=== PATIENT | female | born 1950 | race Hispanic/Latino ===

== ENCOUNTER 2018-01-18 06:00 | Day surgery (SDC) | payer MEDICARE ==
[2018-01-15 09:30] VITALS: BP 128/71
[2018-01-18] VITALS (13 sets, daily range): BP systolic 116–153; BP diastolic 59–72
[~2018-01-18] VITALS: Ht 147.3 cm; Wt 55.8 kg
[2018-01-18] MEDS: CEFAZOLIN SODIUM 1 GM VIAL IVP SCH ×2 (05:00→07:30)
[~2018-01-18 06:00] MED LIST: ACET-2900 PO; BACL20TA PO; CHOL200013 PO; GABA-529 PO; GLIM4TAB3 PO; GLUC-145 PO; HYDR12.530 PO; LOSA100T29 PO; METF10004 PO; MVIT PO; calcium,mag,zinc PO; vitamin b12
[2018-01-18] MEDS ORDERED: SODIUM CHLORIDE 0.9% 1000ML 1,000 ML IV ONE (06:33)
[2018-01-18] MEDS ORDERED: LIDOCAINE HCL-MPF 0.5% 50ML VIAL IJ ONE ×2 (07:02→07:11)
[2018-01-18] MEDS ORDERED: LIDOCAINE PF 2% 5ML ABBOJECT ONE (07:03)
[2018-01-18] MEDS ORDERED: GLYCOPYRROLATE 0.2 MG/ML 5 ML VIAL ONE (07:03)
[2018-01-18] MEDS ORDERED: DEXAMETHASONE SOD PHOSPHATE 10MG/ML 1ML VIAL ONE (07:03)
[2018-01-18] MEDS ORDERED: PROPOFOL 10 MG/ML 20ML VIAL IV ONE (07:07)
[2018-01-18] MEDS ORDERED: MIDAZOLAM HCL 1 MG/ML 2ML VIAL ONE (07:07)
[2018-01-18] MEDS ORDERED: FENTANYL CITRATE PF 50 MCG/1 ML 2ML VIAL ONE (07:07)
[2018-01-18] MEDS ORDERED: ONDANSETRON HCL MDV 20ML 2 MG/ML VIAL ONE (07:44)
== END 2018-01-18 09:27 | disposition home or self-care (01) ==
LOC: DAH 06:00
PROVIDERS: ATTEND Neurological Surgery
DX: G56.02 Carpal tunnel syndrome, left upper limb (principal); Z79.899 Other long term (current) drug therapy; Z79.84 Long term (current) use of oral hypoglycemic drugs; E11.9 Type 2 diabetes mellitus without complications; I48.91 Unspecified atrial fibrillation; I10 Essential (primary) hypertension; M19.90 Unspecified osteoarthritis, unspecified site; I99.8 Other disorder of circulatory system
CPT/HCPCS: 64721; 82948 ×2; 93005; A4218; J0690; J1100; J2001; J2250; J2704; J3010; J3490 ×3; J7030

== ENCOUNTER → 2020-08-06 | Outpatient (CLI) | payer OTHER ==
[~2020-08-06] MED LIST changes: -ACET-2900 PO; +ACET-3194 PO; -GLIM4TAB3 PO; +GLIM4TAB36 PO; -LOSA100T29 PO; +LOSA100T58 PO; +METF-446 PO; -METF10004 PO
== END | disposition home or self-care (01) ==
LOC: RAH 10:26
PROVIDERS: ATTEND Neurological Surgery
DX: M47.812 Spondylosis without myelopathy or radiculopathy, cervical region (principal); M43.13 Spondylolisthesis, cervicothoracic region; M85.88 Other specified disorders of bone density and structure, other site; M48.02 Spinal stenosis, cervical region; M43.22 Fusion of spine, cervical region
CPT/HCPCS: 72050

== ENCOUNTER 2020-08-12 05:46 | Day surgery (SDC) | payer OTHER ==
[2020-08-06 12:08] LABS: BASOPHILS % (AUTO) 0.6 % (0.0-5.0); LYMPHOCYTES % (AUTO) 29.8 % (21.0-51.0); MEAN CORPUSCULAR HEMOGLOBIN 27.6 pg (27.0-33.0); MEAN CORPUSCULAR HGB CONC 31.5 g/dL (32.0-36.0); MEAN CORPUSCULAR VOLUME 87.9 fL (79-99); MONOCYTES % (AUTO) 7.6 % (3.0-13.0); NEUTROPHILS % (AUTO) 60.8 % (40.0-77.0); PLATELET COUNT (AUTO) 349 K/uL (130-400); RED BLOOD CELL COUNT(AUTO) 3.87 MIL/uL (4.00-5.50); RED CELL DISTRIBUTION WIDTH 13.3 % (11.0-15.5); WHITE BLOOD COUNT (AUTO) 8.7 K/uL (4.8-10.8)
[2020-08-06 12:35] LABS: CREATININE 0.9 mg/dL (0.5-1.5); POTASSIUM 4.3 mmol/L (3.5-5.1)
[2020-08-11] MEDS: CEFAZOLIN SODIUM 1 GM VIAL IVP SCH (06:00)
[2020-08-11 10:46] VITALS: BP 117/60
[2020-08-11 14:25] LABS: APPEARANCE,URINE Clear (CLEAR); BILIRUBIN,URINE Negative (NEGATIVE); COLOR,URINE Yellow (YELLOW); GLUCOSE, URINE (UA) Negative (NEGATIVE); KETONES,URINE Negative (NEGATIVE); LEUKOCYTE ESTERASE ,URINE Small (NEGATIVE); NITRATE,URINE Positive (NEGATIVE); OCCULT BLOOD,URINE Moderate (NEGATIVE); PH,URINE 5.5 (5.0-8.0); PROTEIN,URINE Negative (NEGATIVE); UROBILINOGEN,URINE 0.2 mg/dL (0.2-1.0)
[2020-08-11 14:44] LABS: BACTERIA,URINE Many /HPF (None Seen); RBC,URINE 0-1 /HPF (0-1)
--- NOTE | 2020-08-11 16:28 | NUR ---
UA PT STATES HAS A TEMP OF 101.3. DR. SEAY INFORMED. UA AND PAID COVID ORDERED. PT HAS UTI AND NEGATIVE RAPID RESULT. INFORMED DR. DAWOOD STEWART ASST. PER DR. SEAY, HE WILL PROCEED WITH SURGERY AND CALL IN A PRESCRIPTION FOR HER UTI TO START TODAY. PT INFORMED. VERBALIZED UNDERSTANDING, AND WIAHES TO PROCEED WITH SURGERY TOMORROW.
[2020-08-12] VITALS (11 sets, daily range): BP systolic 107–136; BP diastolic 47–66
[~2020-08-12] VITALS: Ht 147.3 cm; Wt 55.8 kg
[~2020-08-12 05:46] MED LIST changes: +ASPI-1197 PO; +ATOR10TA69 PO; +BIOT5000 PO; -CHOL200013 PO; +GLIM1TAB18 PO; +GLIM2TAB30 PO; -GLIM4TAB36 PO; -GLUC-145 PO; -MVIT PO; +OMEG-148 PO; +[UNRECOGNIZED DRUG - OTHER] PO; -calcium,mag,zinc PO; -vitamin b12
[2020-08-12] MEDS ORDERED: CEFAZOLIN SODIUM 1 GM VIAL ONE (07:12)
[2020-08-12] MEDS ORDERED: SODIUM CHLORIDE 0.9% 1000ML 1,000 ML IV ONE (07:12)
[2020-08-12] MEDS ORDERED: NITR100C4 PO (07:50)
[2020-08-12] MEDS ORDERED: PROPOFOL 10 MG/ML 20ML VIAL IV ONE (10:40)
[2020-08-12] MEDS ORDERED: DEXAMETHASONE SOD PHOSPHATE 10MG/ML 1ML VIAL ONE (10:40)
[2020-08-12] MEDS ORDERED: MIDAZOLAM HCL 1 MG/ML 2ML VIAL ONE (10:40)
[2020-08-12] MEDS ORDERED: ONDANSETRON HCL 4 MG/2 ML VIAL ONE (10:40)
[2020-08-12] MEDS ORDERED: MEPERIDINE-PF 25 MG/ML SYG ONE (10:40)
[2020-08-12] MEDS ORDERED: LIDOCAINE HCL-MPF 0.5% 50ML VIAL IJ ONE (10:47)
[2020-08-12] MEDS: CEFAZOLIN SODIUM 1 GM VIAL IVP SCH (11:25)
--- NOTE | 2020-08-12 12:30 | NUR ---
Pt received Pt received via stretcher accompanied by MATEO Lewis. Pt awake and alert. Has dressing to right hand; stated no need to loosen it. Good capillary refill to right fingers; warm to touch. Denies any pain at this time. Fluid offered.
--- NOTE | 2020-08-12 13:15 | NUR ---
D/C Pt prepared for discharge; verbal instructions given to daughter over the phone (Veronique Ybarra) and pt. Written instructions given to pt with a rx for Toradol. Instructed pt and daughter on dosage and frequency. Verbalized understanding. Assisted pt to dress and she was taken to private vehicle via w/c in no distress. Dressing remained dry and intact. Good capillary refill to fingers, warm to touch.
== END 2020-08-12 13:30 | disposition home or self-care (01) ==
LOC: DAH 05:46
PROVIDERS: ATTEND Neurological Surgery
DX: G56.01 Carpal tunnel syndrome, right upper limb (principal); Z20.828 Contact with and (suspected) exposure to other viral communicable diseases; I10 Essential (primary) hypertension; E11.9 Type 2 diabetes mellitus without complications; Z98.890 Other specified postprocedural states; Z98.1 Arthrodesis status; Z79.899 Other long term (current) drug therapy; Z79.82 Long term (current) use of aspirin; Z79.84 Long term (current) use of oral hypoglycemic drugs; Z91.040 Latex allergy status
CPT/HCPCS: 36415; 64721; 80048; 81001; 82948 ×2; 85025; 87077; 87088; 87186; 87426; 93005; A4215; A4221; A4222; A4223 ×2; A4657; A6260; C9803; J0690; J1100; J2175; J2250; J2405; J2704; J3490; J7030; U0003